=== PATIENT | female | born 1980 | race Caucasian/White ===

== ENCOUNTER 2018-06-05 20:30 | Emergency (ER) | payer MEDICAID, OTHER ==
[~2018-06-05] VITALS: Ht 160 cm; Wt 90.7 kg
[2018-06-05 20:36] VITALS: BP 136/89
--- NOTE | 2018-06-05 21:03 | NUR ---
Patient to bed 10. RN evaluating patient at bedside.
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
--- NOTE | 2018-06-05 22:09 | NUR ---
ASSESSING PT AT BEDSIDE
[2018-06-05] MEDS ORDERED: BACITRACIN OINT 500 UNITS/GM PKT TP ONE (22:30)
[2018-06-05] MEDS ORDERED: KETOROLAC 30 MG/ML VIAL IM ONE (22:30)
--- NOTE | 2018-06-06 00:01 | NUR ---
Patient discharged with v/s stable. Written and verbal after care instructions given and explained. Patient alert, oriented and verbalized understanding of instructions. Ambulatory with steady gait. All questions addressed prior to discharge. ID band removed. Patient advised to follow up with PMD. Rx of NAPROSYN, VALIUM given. Patient educated on indication of medication including possible reaction and side effects. Opportunity to ask questions provided and answered.
[2018-06-06 00:02] VITALS: BP 132/75
== END 2018-06-06 00:01 | disposition home or self-care (01) ==
LOC: MED 20:30
DX: S73.101A Unspecified sprain of right hip, initial encounter (principal); S50.311A Abrasion of right elbow, initial encounter; Z90.49 Acquired absence of other specified parts of digestive tract; V09.9XXA Pedestrian injured in unspecified transport accident, initial encounter; Y93.55 Activity, bike riding; Y92.488 Other paved roadways as the place of occurrence of the external cause; Y99.8 Other external cause status
CPT/HCPCS: 71045; 73502; 81002; 81025; 96372; 99284; J1885; Q0092

== ENCOUNTER 2018-11-21 00:18 | Inpatient (IN) | payer OTHER ==
[~2018-11-21] VITALS: Ht 160 cm; Wt 95.3 kg
--- NOTE | 2018-11-21 00:18 | NUR ---
Patient BIBA BLS, transferred to bed 11. RN evaluating patient at bedside.
[2018-11-21 00:20] VITALS: BP 142/97
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
[2018-11-21] MEDS ORDERED: KETOROLAC 30 MG/ML VIAL IVP ONE (00:35)
[2018-11-21] MEDS ORDERED: NACL 0.9% 1,000 ML IV ONE (00:35)
[2018-11-21] MEDS ORDERED: cefTRIAXone 1,000 MG in DEXT 5% MINI-BAG PLUS 50 ML IV ONE (00:50)
[2018-11-21 01:13] LABS: BASOPHILS # (AUTO) 0.3 K/uL (0.00-0.22); BASOPHILS % (AUTO) 3.2 % (0.0-2.0); EOSINOPHILS # (AUTO) 0.2 K/uL (0-0.4); EOSINOPHILS % (AUTO) 1.8 % (0.0-4.0); HEMATOCRIT 36.1 % (36-48); HEMOGLOBIN 11.5 g/dL (12.0-16.0); LYMPHOCYTES # (AUTO) 1.5 K/uL (2.5-16.5); LYMPHOCYTES % (AUTO) 13.9 % (20.5-51.1); MEAN CORPUSCULAR HEMOGLOBIN 25 pg (27-31); MEAN CORPUSCULAR HGB CONC 32 g/dL (33-37); MEAN CORPUSCULAR VOLUME 79.3 fL (80-94); MONOCYTES # (AUTO) 0.7 K/uL (0.8-1.0); MONOCYTES % (AUTO) 6.5 % (1.7-9.3); NEUTROPHILS % (AUTO) 74.6 % (42.2-75.2); PLATELET COUNT (AUTO) 548 K/uL (140-450); RED BLOOD CELL COUNT(AUTO) 4.56 MIL/uL (4.20-5.40); RED CELL DISTRIBUTION WIDTH 16.2 % (11.6-13.7); WHITE BLOOD COUNT (AUTO) 10.7 K/uL (4.8-10.8)
[2018-11-21] MEDS ORDERED: cefTRIAXone 1,000 MG VIAL ONE (01:18)
[2018-11-21 01:27] LABS: ANION GAP 13.1 (8-16); CARBON DIOXIDE 26.5 mmol/L (21-32); POTASSIUM 3.6 mmol/L (3.5-5.1)
[2018-11-21 01:28] LABS: CREATININE 0.9 mg/dL (0.6-1.3)
[2018-11-21 01:32] LABS: TOTAL BILIRUBIN 0.2 mg/dL (0.0-1.0)
[2018-11-21 01:33] LABS: ALBUMIN 2.5 g/dL (3.4-5.0)
[2018-11-21 02:00] LABS: BILIRUBIN,URINE NEGATIVE (NEGATIVE); BLOOD, URINE 3+ (NEGATIVE); LEUKOCYTE ESTERASE ,URINE 3+ (NEGATIVE); NITRITE, URINE NEGATIVE (NEGATIVE); PH,URINE 7.5 (5.0-9.0); UGLUCOSE NEGATIVE (NEGATIVE)
[2018-11-21 02:10] LABS: APPEARANCE,URINE CLOUDY (CLEAR); COLOR,URINE SLIGHT BLOODY (YELLOW)
[2018-11-21 02:12] LABS: RBC,URINE TOO NUMEROUS TO COUN /HPF (0-5); WBC,URINE 60-80 /HPF (0-5)
[2018-11-21] MEDS ORDERED: HYDROcodone/APAP 5/325 MG 1 TAB TAB PO PRN ×2 (02:15)
[2018-11-21] MEDS ORDERED: ONDANSETRON 4 MG/2 ML VIAL IVP PRN ×2 (02:15→02:25)
[2018-11-21] MEDS ORDERED: ACETAMINOPHEN 325 MG TAB PO PRN (02:15)
--- NOTE | 2018-11-21 03:00 | NUR ---
APatient will be admitted to care of DR. DELAROSA. Adm[facility] to [facility]. Will go to room 119B. Belongings list completed. Report to ROLAND JONES
[2018-11-21 03:03] VITALS: BP 126/82
--- NOTE | 2018-11-21 03:03 | NUR ---
RECEIVED PT FROM ER VIA WHEELCHAIR AC X 4, AMBULATORY. WITH HER. WITH ONGOING IVF ON LEFT AC G 20, PATENT AND INTACT. W/ NEPHROSTOMY TUBE IN PLACE ON LEFT SIDE, FLANK AREA W/ DRESSING, DRY AND INTACT IN PLACE.PATIENT C/O OF PAIN WILL MEDICATE PER ORDER. PATIENT ORIENTED TO UNIT. DISCUSSED POC. PLACED IN LOW BED, CALL LIGHT WITHIN EASY REACH.
[2018-11-21 04:00] VITALS: BP 126/82
--- NOTE | 2018-11-21 04:00 | NUR ---
PT SLEEPING AT THIS TIME. NORMAL VITAL SIGNS,PAIN TOLERABLE. WILL CONTINUE TO MONITOR.
[2018-11-21] MEDS: MORPHINE SULFATE 4 MG/ML SYR IVP PRN ×4 (04:16→19:51)
[2018-11-21 04:21] LABS: PROTHROMBIN TIME 9.1 secs (10.8-13.4)
--- NOTE | 2018-11-21 07:15 | NUR ---
ENDORSED TO AM SHIFT FOR CONTINUITY OF CARE. PT IN STABLE CONDITION.
--- NOTE | 2018-11-21 07:30 | NUR ---
ENDORSED TO AM SHIFT FOR CONTINUITY OF CARE. PT IN STABLE CONDITION. IVF ORDER PENDING. ENDORSED TO NEXT SHIFT. DR. DELAROSA JUST CALLED TO ORDER NS AT 100ML/HR.
--- NOTE | 2018-11-21 07:31 | NUR ---
RECEIVED BEDSIDE REPORT FROM ROLAND JONES. PT STABLE, AWAKE, AND ALERT. NO SIGNS OF DISTRESS NOTED. NO REDNESS SWELLING OR INFLAMMATION NOTED ON IV SITE. DENIES PAIN. CALL COOL WITHIN REACH. SAFETY MEASURES IN PLACE. PLAN OF CARE REVIEWED.
[2018-11-21 08:00] VITALS: BP 147/97
[2018-11-21] MEDS: NACL 0.9% 1,000 ML IV SCH ×2 (08:00→19:06)
[2018-11-21] MEDS: ENOXAPARIN 40 MG/0.4 ML SYR SUBQ SCH (10:09)
--- NOTE | 2018-11-21 10:10 | NUR ---
ADMINISTERED SCHEDULED MEDICATIONS AND PRN MORPHINE FOR 10/10 LEFT FLANK PAIN. PT TOLERATED WELL. NO OTHER NEEDS AT THIS TIME. AT THE BEDSIDE.
--- NOTE | 2018-11-21 12:10 | NUR ---
PATIENT HAS BEEN SCREENED AND CATEGORIZED MODERATE NUTRITION RISK. PATIENT WILL BE SEEN WITHIN 3-5 DAYS OF ADMISSION. 11/24/18BRANDT KRUSE MBA, RD
--- NOTE | 2018-11-21 13:00 | NUR ---
DR. ENCISO AT THE BEDSIDE.
--- NOTE | 2018-11-21 13:45 | NUR ---
DR. DELAROSA AT THE BEDSIDE.
--- NOTE | 2018-11-21 14:55 | NUR ---
ADMINISTERED PRN MORPHINE FOR 10/10 LEFT FLANK PAIN. PT TOLERATED WELL. NO OTHER NEEDS AT THIS TIME. AT THE BEDSIDE.
[2018-11-21 16:00] VITALS: BP 136/72
--- NOTE | 2018-11-21 16:42 | NUR ---
EMPTIED LEFT NEPHROSTOMY BAG, 250ML SEROSANGUINOUS OUTPUT.
--- NOTE | 2018-11-21 17:15 | NUR ---
PT SLEEPING BUT EASILY AROUSABLE. AT THE BEDSIDE.
--- NOTE | 2018-11-21 19:15 | NUR ---
ENDORSED PATIENT TO TRANSPORTATION AGENT NURSE FOR CONTINUITY OF CARE. PT STABLE, AWAKE, AND ALERT.
--- NOTE | 2018-11-21 19:16 | NUR ---
RECEIVED PT AWAKE ON BED COMPLAINING OF LEFT FLANK PAIN, WILL MEDICATE PRN, LEFT NEPHROSTOMY TUBE IN PLACE WITH WALKER COLORED OUTPUT, IVF INFUSING WELL, PLAN OF CARE DISCUSSED, SAFETY MEASURES IN PLACE, CALL LIGHT WITHIN REACH.
--- NOTE | 2018-11-21 22:10 | NUR ---
PT SLEEPING, NO SIGNS OF PAIN, IVF INFUSING WELL, MONITORED CLOSELY.
--- NOTE | 2018-11-21 23:40 | NUR ---
PT SLEEPING, EASILY AROUSABLE, VITAL SIGNS STABLE, DENIES ANY PAIN, NEPHROSTOMY BAG EMPTIED WITH 250ML WALKER COLORED URINE, CONTINUE TO MONITOR CLOSELY.
[2018-11-22] VITALS: BP 135/90
[2018-11-22] MEDS: MORPHINE SULFATE 4 MG/ML SYR IVP PRN ×3 (01:35→11:42)
--- NOTE | 2018-11-22 01:50 | NUR ---
PT AMBULATED TO BR AND VOIDED FREELY, MEDICATED PRN FOR LEFT BACK PAIN, MONITORED CLOSELY.
[2018-11-22] MEDS: NACL 0.9% 1,000 ML IV SCH ×3 (04:00→16:24)
--- NOTE | 2018-11-22 05:45 | NUR ---
MEDICATED PRN FOR PAIN, EMPTIED ANOTHER 250ML FROM NEPHROSTOMY BAG WITH WALKER COLORED OUTPUT, MONITORED CLOSELY.
[2018-11-22 06:54] LABS: BASOPHILS % (AUTO) 0.3 % (0.0-2.0); EOSINOPHILS # (AUTO) 0.2 K/uL (0-0.4); EOSINOPHILS % (AUTO) 2.1 % (0.0-4.0); HEMATOCRIT 34.3 % (36-48); HEMOGLOBIN 10.7 g/dL (12.0-16.0); LYMPHOCYTES # (AUTO) 2.7 K/uL (2.5-16.5); LYMPHOCYTES % (AUTO) 22.8 % (20.5-51.1); MEAN CORPUSCULAR HEMOGLOBIN 25 pg (27-31); MEAN CORPUSCULAR HGB CONC 31 g/dL (33-37); MONOCYTES # (AUTO) 0.7 K/uL (0.8-1.0); MONOCYTES % (AUTO) 6.1 % (1.7-9.3); NEUTROPHILS # (AUTO) 8.1 K/uL (1.8-7.7); NEUTROPHILS % (AUTO) 68.7 % (42.2-75.2); PLATELET COUNT (AUTO) 549 K/uL (140-450); RED BLOOD CELL COUNT(AUTO) 4.34 MIL/uL (4.20-5.40); RED CELL DISTRIBUTION WIDTH 15.9 % (11.6-13.7); WHITE BLOOD COUNT (AUTO) 11.8 K/uL (4.8-10.8)
--- NOTE | 2018-11-22 07:29 | NUR ---
PT AWAKE, NO SIGNS OF DISTRESS, REPORT GIVEN TO RN MAURY FOR CONTINUITY OF CARE.
--- NOTE | 2018-11-22 07:30 | NUR ---
RECEIVED BEDSIDE REPORT FROM GUEST RELATIONS AGENT NURSE. PATIENT IS AWAKE, ALERT AND ORIENTEDX4. NO SIGNS OF DISTRESS ON RA. SKIN IS INTACT. L FLANK NEPHROSTOMY. DRAINING WELL WITH PINK URINE. IV ON L AC 22G INFUSING NS AT 100. CLEAN, DRY AND INTACT. FALL RISK D/T WEAKNESS. MED SURGE PATIENT. PATIENT IS CONTINENT, BED IN LOW POSITION, CALL LIGHT WITHIN REACH. WILL CONTINUE TO MONITOR THE PATIENT
[2018-11-22 07:36] LABS: ALBUMIN 2.4 g/dL (3.4-5.0); ANION GAP 6.9 (8-16); CARBON DIOXIDE 26.6 mmol/L (21-32); CREATININE 0.7 mg/dL (0.6-1.3); POTASSIUM 3.5 mmol/L (3.5-5.1); TOTAL BILIRUBIN 0.2 mg/dL (0.0-1.0)
[2018-11-22 08:00] VITALS: BP 135/76
[2018-11-22] MEDS ORDERED: TAMSULOSIN 0.4 MG CAP PO SCH (08:30)
[2018-11-22] MEDS: ENOXAPARIN 40 MG/0.4 ML SYR SUBQ SCH (08:32)
--- NOTE | 2018-11-22 08:40 | NUR ---
ADMINISTERED MEDS. PATIENT TOLERATED WELL. NO SIGNS OF DISTRESS. WILL CONTINUE TO MONITOR THE PATIENT
--- NOTE | 2018-11-22 11:49 | NUR ---
ADMINISTERED PRN PAIN MEDS. PATIENT TOLERATED WELL. NO SIGNS OF DISTRESS. WILL CONTINUE TO MONITOR. PATIENT ON THE PHONE Elvis LEOS
--- NOTE | 2018-11-22 13:00 | NUR ---
NO SIGNS OF DISTRESS ON RA. PATIENT IS SLEEPING. WILL CONTINUE TO MONITOR THE PATIENT
--- NOTE | 2018-11-22 15:00 | NUR ---
NEW IV PLACED ON R FA 22G INFUSING NS AT 100. CLEAN, DRY AND INTACT. IV REMOVED ON L AC D/T INFILTRATION. BED IN LOW POSITION. CALL LIGHT WITHIN REACH.
[2018-11-22] MEDS ORDERED: DOCUSATE 100 MG/10 ML UDC GT PRN (15:20)
[2018-11-22 16:00] VITALS: BP 115/71
--- NOTE | 2018-11-22 17:55 | NUR ---
EDUCATED PATIENT AND DAUGHTER ON DISEASE PROCESS, ABN S/SX, WHEN TO GO TO THE ER, FOLLOW UP W DR ENCISO ON FRIDAY. CONTINUE MEDS ORDERED BY LAST DR VISIT. PATIENT VERBALIZED UNDERSTANDING. PATIENT PNA AND FLU IS UP TO DATE. PATIENT LEFT IN WHEELCHAIR W DAUGHTER BY HER SIDE. PATIENT LEFT IN STABLE CONDITION. IV REMOVED TIP WAS INTACT AND ID BAND REMOVED.
[2018-11-23] MEDS ORDERED: PSYLLIUM 12.2 GM/PKT PO SCH (09:00)
--- NOTE | 2018-11-23 15:15 | NUR ---
CRISTINA SALCEDO CALLED [facility], / SHE GOT AN APPOINTMENT FOR THE PATIENT FOR 11/25/18Friday AT 2:30P.M. I CALLED HER AND GAVE HER THE INFORMATION. [facility], [address] PHONE [phone] Addendum: 11/23/18 at 1518 by Italia Addison CM THE PATIENT ALSO STATED THAT SHE HAS AN APPOINTMENT WITH THE UROLOGIST, DR. ENCISO, TOMORROW.
== END 2018-11-22 17:55 | disposition home or self-care (01) | DRG 465 ==
LOC: MED 00:18 → MTU 02:14
PROVIDERS: ADMIT Hospitalist; ATTEND Hospitalist
DX: N13.30 Unspecified hydronephrosis (principal); Z93.6 Other artificial openings of urinary tract status; Z87.442 Personal history of urinary calculi; Z90.49 Acquired absence of other specified parts of digestive tract; Z98.891 History of uterine scar from previous surgery; N39.0 Urinary tract infection, site not specified
CPT/HCPCS: 36415; 71045; 74018; 80053; 81001; 82550; 83605; 85025; 85610; 85730; 87040; 87081; 87086; 96365; 96375; 99285; J0696; J1650; J1885; J2270; J7030; J7060; Q0092

== ENCOUNTER 2020-05-26 02:58 | Emergency (ER) | payer OTHER ==
[~2020-05-26] VITALS: Ht 152.4 cm; Wt 101.6 kg
[2020-05-26 03:05] VITALS: BP 129/84
--- NOTE | 2020-05-26 03:12 | NUR ---
40 Y/O FEMALE C/O DYSURIA X 3 MONTHS . PT HAS BEEN TAKING VAGISIL W/ NO RELIEF. - FEVER, N/V/D/CHILLS/BODY ACHES . + ITCHING , PAINFUL INTERCOURSE. +DYSURIA. PT SAYS "MY URINE HAS A FOUL SMELLING ORDER." +YELLOW PURULENT DISCHARGE. VSS. +HEMATURIA. URINE APPEARANCE IS CLOUDY AND FOUL SMELLING. TOOK TYLENOL AT 2330 LAST NIGHT. 10/10 PAIN AND DESCRIBES IT BURNING AND SHARP. PAIN GOT WORSE LAST WEEK. + PROTECTION DURING INTERCOURSE. DENIES ANY SWELLING OR REDNESS AROUND THE VAGINAL AREA. A&O X4. STEADY GAIT. PMH: KIDNEY STONES , GALL STONES NKA
--- NOTE | 2020-05-26 03:12 | NUR ---
PT TAKEN TO BED 6
[2020-05-26] MEDS ORDERED: cefTRIAXone 250 MG in LIDOCAINE MPF 1% 0.9 ML IM ONE (03:30)
[2020-05-26] MEDS ORDERED: AZITHROMYCIN 250 MG TAB PO ONE (03:30)
--- NOTE | 2020-05-26 03:31 | NUR ---
Dr. John examining patient.
[2020-05-26] MEDS ORDERED: cefTRIAXone 250 MG VIAL ONE (03:33)
[2020-05-26] MEDS ORDERED: LIDOCAINE MPF 1% 5 ML ONE (03:34)
[2020-05-26 03:53] VITALS: BP 129/84
--- NOTE | 2020-05-26 03:53 | NUR ---
Patient discharged with v/s stable. Written and verbal after care instructions given and explained. Patient alert, oriented and verbalized understanding of instructions. Ambulatory with steady gait. All questions addressed prior to discharge. ID band removed. Patient advised to follow up with PMD. Rx of CIPRO, MOTRIN given. Patient educated on indication of medication including possible reaction and side effects. Opportunity to ask questions provided and answered.
[2020-05-28 06:08] LABS: CHLAMYDIA TRACHOMATIS AMP DNA Negative (Negative)
== END 2020-05-26 03:53 | disposition home or self-care (01) ==
LOC: MED 02:58
DX: N39.0 Urinary tract infection, site not specified (principal); R30.0 Dysuria; N28.9 Disorder of kidney and ureter, unspecified; Z90.49 Acquired absence of other specified parts of digestive tract; Z98.890 Other specified postprocedural states
CPT/HCPCS: 36415; 81002; 81025; 87086; 87186; 87491; 96372; 99283; J0696; J2001

== ENCOUNTER 2020-07-19 00:11 | Emergency (ER) | payer OTHER ==
[~2020-07-19] VITALS: Ht 157.5 cm; Wt 90.7 kg
[2020-07-19 00:17] VITALS: BP 142/95
--- NOTE | 2020-07-19 00:19 | NUR ---
To ED bed 01
--- NOTE | 2020-07-19 00:54 | NUR ---
PT C/O PAINFUL URINATION X 1 YEAR. STATES SHES BEEN TREATED FOR MULTIPLE UTI'S IN THE PAST YEAR BUT THEY NEVER GO AWAY. HAS CONSTANT PAIN WITH URINATION AND STRUGGLES TO EVEN URINATE, FEELING LIKE SHE HAS TO "FORCE THE URINE OUT". DENIES HAVING ANY FEVER AND NO BACK OR FLANK PAIN. NO N/V/D. BED IN LOWEST POSITION ABD SIDERAIL UP X 1. NKA NO HX
--- NOTE | 2020-07-19 00:55 | NUR ---
URINE WAS COLLECTED AND DIPPED, ALSO SENT TO LAB
--- NOTE | 2020-07-19 01:10 | NUR ---
PT C/O CONTINUED PAIN, ADVISED MD HAIDER, NEW ORDER RECEIVED.
[2020-07-19] MEDS: KETOROLAC 60 MG/2 ML VIAL IM ONE (01:20)
[2020-07-19] MEDS ORDERED: cefTRIAXone 500 MG VIAL ONE (01:48)
[2020-07-19] MEDS ORDERED: LIDOCAINE MPF 1% 5 ML ONE (01:49)
[2020-07-19] MEDS: cefTRIAXone 500 MG in LIDOCAINE MPF 1% 1 ML IM ONE (02:04)
[2020-07-19] MEDS: AZITHROMYCIN 250 MG TAB PO ONE (02:04)
[2020-07-19 02:05] VITALS: BP 142/95
[2020-07-22 16:19] LABS: CHLAMYDIA TRACHOMATIS AMP DNA NEGATIVE (NEGATIVE)
== END 2020-07-19 02:05 | disposition home or self-care (01) ==
LOC: MED 00:11
DX: N34.2 Other urethritis (principal); N28.9 Disorder of kidney and ureter, unspecified
CPT/HCPCS: 36415; 81002; 81025; 87086; 96372; 99284; J0696; J1885; J2001; 87491

== ENCOUNTER 2021-03-25 10:50 | Emergency (ER) | payer MEDICAID, SELFPAY ==
[~2021-03-25] VITALS: Ht 160 cm; Wt 90.7 kg
[~2021-03-25 10:50] MED LIST: CEPH250C16 PO
[2021-03-25 10:55] VITALS: BP 147/93
[2021-03-25] MEDS ORDERED: NACL 0.9% 1,000 ML IV ONE (11:25)
[2021-03-25] MEDS ORDERED: METOCLOPRAMIDE 10 MG/2 ML INJ VIAL IVP ONE (11:25)
[2021-03-25] MEDS ORDERED: KETOROLAC 30 MG/ML VIAL IVP ONE (11:25)
[2021-03-25] MEDS ORDERED: diphenhydrAMINE 50 MG/ML VIAL IVP ONE (11:25)
--- NOTE | 2021-03-25 11:30 | NUR ---
40 YEAR OLD FEMALE COMPLAINS OF HEADACHE, LIGHTHEADEDNESS, AND FATIGUE X 2 WEEKS. PT DENIES LOC. PT AOX4, BREATHING EVEN AND UNLABORED, SKIN WARM AND DRY. BED IN LOWEST POSITION, LOCKED, BED RAIL UPX1. PMH - KIDNEY STONE, BELLS PALSY, GALLBLADER REMOVAL ALLERGIES - NKA
--- NOTE | 2021-03-25 12:40 | NUR ---
PATIENT TAKEN TO CT VIA WHEELCHAIR
--- NOTE | 2021-03-25 12:53 | NUR ---
PATIENT RETURNED FROM CT VIA WHEELCHAIR
--- NOTE | 2021-03-25 13:00 | NUR ---
PT ALERT AND AWAKE, BREATHING EVEN AND UNLABORED. NO DISTRESS NOTED.
[2021-03-25] MEDS ORDERED: IBUP-2213 PO (14:07)
[2021-03-25] MEDS ORDERED: METO-485 PO (14:07)
[2021-03-25 14:14] VITALS: BP 141/89
--- NOTE | 2021-03-25 14:14 | NUR ---
Patient discharged with v/s stable. Written and verbal after care instructions about general headache without cause given and explained. Patient alert, oriented and verbalized understanding of instructions. Ambulatory with steady gait. All questions addressed prior to discharge. ID band removed. Patient advised to follow up with PMD. Rx of ibuprofen, reglan given. Patient educated on indication of medication including possible reaction and side effects. Opportunity to ask questions provided and answered.
--- NOTE | 2021-03-30 11:30 | NUR ---
LATE ENTRY -- NS BOLUS COMPLETED AT 1247 03/25/21
== END 2021-03-25 14:14 | disposition home or self-care (01) ==
LOC: MED 10:50
DX: R51.9 Headache, unspecified (principal); H53.149 Visual discomfort, unspecified; Z79.899 Other long term (current) drug therapy; Z87.442 Personal history of urinary calculi
CPT/HCPCS: 70450; 81002; 81025; 96361; 96374; 96375; 99284; J1200; J1885; J2765

== ENCOUNTER 2021-10-22 17:16 | Emergency (ER) | payer MEDICAID, OTHER, SELFPAY ==
[~2021-10-22] VITALS: Ht 152.4 cm; Wt 107.5 kg
[~2021-10-22 17:16] MED LIST changes: +IBUP-2213 PO; +METO-485 PO
--- NOTE | 2021-10-22 17:37 | NUR ---
name called in lobby and outside, no response
--- NOTE | 2021-10-22 17:50 | NUR ---
name call in lobby and outside, no answer
[2021-10-22 18:03] VITALS: BP 153/95
[2021-10-22] MEDS ORDERED: CYCL-711 PO (20:20)
[2021-10-22] MEDS ORDERED: NAPR-54 PO (20:20)
[2021-10-22 20:54] VITALS: BP 153/95
--- NOTE | 2021-10-22 20:55 | NUR ---
Patient discharged with v/s stable. Written and verbal after care instructions given and explained. Patient verbalized understanding. Ambulatory with steady gait. All questions addressed prior to discharge. Advised to follow up with PMD.
== END 2021-10-22 20:28 | disposition home or self-care (01) ==
LOC: MED 17:16
DX: S40.011A Contusion of right shoulder, initial encounter (principal); Z87.442 Personal history of urinary calculi; Z79.899 Other long term (current) drug therapy; W01.0XXA Fall on same level from slipping, tripping and stumbling without subsequent striking against object, initial encounter; Y93.E1 Activity, personal bathing and showering; Y92.89 Other specified places as the place of occurrence of the external cause; Y99.8 Other external cause status
CPT/HCPCS: 73030; 81002; 81025; 99283

== ENCOUNTER 2021-11-12 15:39 | Emergency (ER) | payer OTHER ==
[~2021-11-12] VITALS: Ht 157.5 cm; Wt 99.8 kg
[~2021-11-12 15:39] MED LIST changes: +CYCL-711 PO; +NAPR-54 PO
[2021-11-12 15:57] VITALS: BP 124/69
--- NOTE | 2021-11-12 16:09 | NUR ---
JC ALTAMIRANO EXAMINING PT
--- NOTE | 2021-11-12 16:27 | NUR ---
COLLECTED DIONNA PATEL GAVE TO SUGARCANE RESEARCH TECHNICIAN.
--- NOTE | 2021-11-12 16:34 | NUR ---
41 Y/O FEMALE C/O COVID 19 SYMPTOMS SINCE YESTERDAY. STATES MAY HAVE BEEN EXPOSED TO COVID+ COWORKERS. REPORT SUBJECTIVE FEVER, NAUSEA, VOMITING, DIARRHEA. 07/22 BODY ACHES MEDHX: HALLE NATARAJAN
[2021-11-12] MEDS ORDERED: LOPE1TAB14 PO (17:30)
[2021-11-12] MEDS ORDERED: ONDA-188 SL (17:30)
[2021-11-12] MEDS ORDERED: NAPR-54 PO (17:30)
[2021-11-12 17:52] VITALS: BP 124/69
--- NOTE | 2021-11-12 17:52 | NUR ---
Patient discharged with v/s stable. Written and verbal after care instructions given and explained. Patient alert, oriented and verbalized understanding of instructions. Ambulatory with steady gait. All questions addressed prior to discharge. ID band removed. Patient advised to follow up with PMD. Rx of IMODIUM, NAPROSYN, AND ZOFRAN given. Patient educated on indication of medication including possible reaction and side effects. Opportunity to ask questions provided and answered.
== END 2021-11-12 17:52 | disposition home or self-care (01) ==
LOC: MED 15:39
DX: B34.9 Viral infection, unspecified (principal); Z20.822 Contact with and (suspected) exposure to COVID-19; R11.2 Nausea with vomiting, unspecified; Z90.49 Acquired absence of other specified parts of digestive tract; Z98.890 Other specified postprocedural states; Z79.899 Other long term (current) drug therapy; Z87.442 Personal history of urinary calculi
CPT/HCPCS: 71045; 99284; Q0092; U0003

== ENCOUNTER 2023-04-20 22:59 | Emergency (ER) | payer OTHER ==
[~2023-04-20] VITALS: Ht 157.5 cm; Wt 113.4 kg
[~2023-04-20 22:59] MED LIST changes: +LOPE1TAB14 PO; +ONDA-188 SL
[2023-04-20 23:05] VITALS: BP 143/86; PULSE 78; RESP 20; TEMP 98; O2SAT 100
--- NOTE | 2023-04-20 23:20 | NUR ---
Pt to bed3 Addendum: 04/20/23 at 2320 by [id number] Pt to bed 3
--- NOTE | 2023-04-20 23:27 | NUR ---
Patient resting in bed, A/Ox4, chest rise and fall symmetrical, no s/s of distress, on monitor.
[2023-04-21] MEDS ORDERED: KETOROLAC 15 MG/ML VIAL IVP ONE
[2023-04-21] MEDS ORDERED: ONDANSETRON 4 MG/2 ML VIAL IVP ONE
[2023-04-21 00:21] LABS: APPEARANCE,URINE CLOUDY (CLEAR); BILIRUBIN,URINE NEGATIVE (NEGATIVE); BLOOD, URINE 3+ (NEGATIVE); COLOR,URINE YELLOW (YELLOW); LEUKOCYTE ESTERASE ,URINE 2+ (NEGATIVE); NITRITE, URINE POSITIVE (NEGATIVE); UGLUCOSE NEGATIVE (NEGATIVE)
[2023-04-21 00:21] LABS: BASOPHILS # (AUTO) 0.1 K/uL (0.00-0.22); BASOPHILS % (AUTO) 1.5 % (0.0-2.0); EOSINOPHILS # (AUTO) 0.2 K/uL (0-0.4); EOSINOPHILS % (AUTO) 1.8 % (0.0-4.0); HEMATOCRIT 35.3 % (36-48); HEMOGLOBIN 11.3 g/dL (12.0-16.0); LYMPHOCYTES # (AUTO) 2.6 K/uL (2.5-16.5); LYMPHOCYTES % (AUTO) 26.7 % (20.5-51.1); MEAN CORPUSCULAR HEMOGLOBIN 24 pg (27-31); MEAN CORPUSCULAR HGB CONC 32 g/dL (33-37); MEAN CORPUSCULAR VOLUME 75.9 fL (80-94); MONOCYTES % (AUTO) 9.8 % (1.7-9.3); NEUTROPHILS # (AUTO) 5.9 K/uL (1.8-7.7); NEUTROPHILS % (AUTO) 60.2 % (42.2-75.2); PLATELET COUNT (AUTO) 462 K/uL (140-450); RED BLOOD CELL COUNT(AUTO) 4.65 MIL/uL (4.20-5.40); RED CELL DISTRIBUTION WIDTH 18.2 % (11.6-13.7); WHITE BLOOD COUNT (AUTO) 9.8 K/uL (4.8-10.8)
[2023-04-21 00:39] LABS: ALBUMIN 3.1 g/dL (3.4-5.0); ANION GAP 9.2 (8-16); CARBON DIOXIDE 29.6 mmol/L (21-32); CREATININE 0.9 mg/dL (0.6-1.3); POTASSIUM 3.8 mmol/L (3.5-5.1); TOTAL BILIRUBIN 0.1 mg/dL (0.0-1.0)
--- NOTE | 2023-04-21 01:03 | NUR ---
Patient resting in bed, A/Ox4, chest rise and fall symmetrical, no c/o pain or s/s of distress, on monitor.
--- NOTE | 2023-04-21 03:13 | NUR ---
Patient resting in bed, A/Ox4, chest rise and fall symmetrical, no c/o pain or s/s of distress, on monitor.
--- NOTE | 2023-04-21 05:30 | NUR ---
Patient resting in bed, A/Ox4, chest rise and fall symmetrical, no c/o pain or s/s of distress, on monitor.
[2023-04-21] MEDS ORDERED: NAPR-54 PO (05:40)
[2023-04-21] MEDS ORDERED: HYDR-5191 PO (05:40)
[2023-04-21] MEDS ORDERED: CEPH-588 PO (05:40)
[2023-04-21] MEDS ORDERED: cefTRIAXone 1,000 MG VIAL ONE (05:46)
[2023-04-21 06:16] VITALS: BP 121/65; PULSE 78; RESP 18; TEMP 98.2; O2SAT 100
[2023-04-23] MEDS ORDERED: AMOX1TAB8 PO (13:56)
--- NOTE | 2023-04-23 14:02 | NUR ---
CALLED PT TO INFORM CHANGE IN ANTIBIOTICS.
== END 2023-04-21 06:16 | disposition home or self-care (01) ==
LOC: MED 22:59
DX: N39.0 Urinary tract infection, site not specified (principal); N20.0 Calculus of kidney; F17.200 Nicotine dependence, unspecified, uncomplicated; Z90.49 Acquired absence of other specified parts of digestive tract; Z79.899 Other long term (current) drug therapy; Z87.442 Personal history of urinary calculi
CPT/HCPCS: 36415; 74176; 80053; 81001; 81025; 83690; 85025; 87086; 96365; 96375; 99285; J0696; J1885; J2405; 81002

== ENCOUNTER 2024-01-06 03:24 | Observation (INO) | payer OTHER ==
[~2024-01-06] VITALS: Ht 162.6 cm; Wt 113.4 kg
[~2024-01-06 03:24] MED LIST changes: +AMOX1TAB8 PO; +CEPH-588 PO; +HYDR-5191 PO
[2024-01-06 03:25] VITALS: BP 122/72; PULSE 63; RESP 17; TEMP 97.8; O2SAT 97
[2024-01-06] MEDS: MORPHINE SULFATE 4 MG/ML SYR IVP ONE (04:25)
[2024-01-06] MEDS: ASPIRIN 81 MG TAB.CHEW PO ONE (04:27)
[2024-01-06] MEDS: NITROGLYCERIN 2% 1 GM PKT TP ONE (04:28)
[2024-01-06 05:03] LABS: BASOPHILS # (AUTO) 0.2 K/uL (0.00-0.22); BASOPHILS % (AUTO) 1.3 % (0.0-2.0); EOSINOPHILS # (AUTO) 0.3 K/uL (0-0.4); EOSINOPHILS % (AUTO) 2.1 % (0.0-4.0); HEMATOCRIT 35.3 % (36-48); HEMOGLOBIN 11.3 g/dL (12.0-16.0); LYMPHOCYTES # (AUTO) 3.3 K/uL (2.5-16.5); LYMPHOCYTES % (AUTO) 27.3 % (20.5-51.1); MEAN CORPUSCULAR HEMOGLOBIN 24 pg (27-31); MEAN CORPUSCULAR HGB CONC 32 g/dL (33-37); MEAN CORPUSCULAR VOLUME 76.1 fL (80-94); MONOCYTES # (AUTO) 1.1 K/uL (0.8-1.0); MONOCYTES % (AUTO) 9.2 % (1.7-9.3); NEUTROPHILS # (AUTO) 7.3 K/uL (1.8-7.7); NEUTROPHILS % (AUTO) 60.1 % (42.2-75.2); PLATELET COUNT (AUTO) 450 K/uL (140-450); RED BLOOD CELL COUNT(AUTO) 4.64 MIL/uL (4.20-5.40); RED CELL DISTRIBUTION WIDTH 19.3 % (11.6-13.7); WHITE BLOOD COUNT (AUTO) 12.1 K/uL (4.8-10.8)
[2024-01-06 05:22] LABS: ALANINE AMINOTRANSFERASE 19 U/L (12-78); ALKALINE PHOSPHATASE 118 U/L (50-136); ASPARTATE AMINOTRANSFERASE 12 U/L (15-37); TOTAL BILIRUBIN 0.2 mg/dL (0.0-1.0); TOTAL PROTEIN, SERUM 6.7 g/dL (6.4-8.2)
[2024-01-06] MEDS ORDERED: ATA25 PO (06:20)
[2024-01-06 06:28] LABS: ANION GAP 16.7 (8-16); CALCIUM 8.2 mg/dL (8.5-10.1); CARBON DIOXIDE 22.5 mmol/L (21-32); CREATININE 0.9 mg/dL (0.6-1.3); POTASSIUM 4.2 mmol/L (3.5-5.1)
[2024-01-06] MEDS ORDERED: ONDANSETRON 4 MG/2 ML VIAL IVP PRN (06:45)
[2024-01-06 09:43] VITALS: PULSE 61
[2024-01-06 12:00] VITALS: BP 110/62; PULSE 65; PULSE 75; RESP 18; TEMP 96.6; O2SAT 98
[2024-01-06] MEDS: MORPHINE SULFATE 2 MG/ML SYR IVP PRN (13:33)
[2024-01-06 16:00] VITALS: BP 134/41; PULSE 104; PULSE 91; RESP 18; TEMP 97.7; O2SAT 98
[2024-01-06] MEDS: ACETAMINOPHEN 325 MG TAB PO PRN (17:37)
[2024-01-06 18:24] VITALS: BP 134/41; PULSE 104; RESP 20; TEMP 98.6
[2024-01-06] MEDS ORDERED: MEDS-TO-BEDS MC SCH (21:00)
== END 2024-01-06 18:55 | disposition home or self-care (01) ==
LOC: MED 03:24 → MTU 06:45
PROVIDERS: ADMIT Hospitalist; ATTEND Hospitalist
DX: R07.2 Precordial pain (principal); F41.0 Panic disorder [episodic paroxysmal anxiety]; I20.9 Angina pectoris, unspecified; R06.02 Shortness of breath; E11.9 Type 2 diabetes mellitus without complications; F17.210 Nicotine dependence, cigarettes, uncomplicated; I10 Essential (primary) hypertension; E78.5 Hyperlipidemia, unspecified; Z90.49 Acquired absence of other specified parts of digestive tract
CPT/HCPCS: 36415; 71045; 80048; 80076; 83880; 84484; 85025; 85379; 87081; 93005; 96374; 96376; 99285; G0378; J2270; Q0092

== ENCOUNTER 2024-02-22 18:07 | Emergency (ER) | payer OTHER ==
[~2024-02-22] VITALS: Ht 162.6 cm; Wt 117.9 kg
[2024-02-22 18:17] VITALS: BP 134/88; PULSE 77; RESP 18; TEMP 98.3; O2SAT 98
[2024-02-22] MEDS: CYCLOBENZAPRINE 10 MG TAB PO ONE (18:34)
[2024-02-22] MEDS: KETOROLAC 30 MG/ML VIAL IM ONE (18:35)
[2024-02-22] MEDS: LIDOCAINE 5% 1 EA PATCH TP ONE (18:35)
[2024-02-22] MEDS ORDERED: IBUP-2213 PO (20:37)
[2024-02-22] MEDS ORDERED: CYCL-711 PO (20:37)
[2024-02-22] MEDS ORDERED: LID5T TP (20:37)
[2024-02-22 20:43] VITALS: BP 125/58; PULSE 66; RESP 18; TEMP 97.9; O2SAT 97
== END 2024-02-22 20:43 | disposition home or self-care (01) ==
LOC: MED 18:07
DX: S16.1XXA Strain of muscle, fascia and tendon at neck level, initial encounter (principal); R11.0 Nausea; Z87.442 Personal history of urinary calculi; Z79.1 Long term (current) use of non-steroidal anti-inflammatories (NSAID); Z79.899 Other long term (current) drug therapy; X58.XXXA Exposure to other specified factors, initial encounter; Y93.89 Activity, other specified; Y92.89 Other specified places as the place of occurrence of the external cause; Y99.8 Other external cause status
CPT/HCPCS: 96372; 99283; J1885